=== PATIENT | female | born 1980 | race Caucasian/White ===

== ENCOUNTER 2017-03-14 16:37 | Emergency (ER) | payer BC ==
--- NOTE | 2017-03-14 17:02 | PDOC ---
Rapid Medical Evaluation Time Seen by Provider: 03/14/17 17:00 Medical Evaluation: Allergies Allergy/AdvReac Type Severity Reaction Status Date / Time No Known Allergies Allergy Verified 10/23/15 21:15 03/14/17 17:00 I have performed a brief in-person evaluation of this patient. The patient presents with a chief complaint of: 5 weeks with spotting and cramping Pertinent physical exam findings: ABD: SNTND I have ordered the following: CBC, BMP, T&S, coags, BHCG, ua, urine cx, TVUS The patient will proceed to the ED for further evaluation. Discharge Disposition - Diagnosis Vaginal bleeding affecting early - Referrals - Patient Instructions - Post Discharge Activity
== END 2017-03-14 17:13 | disposition left against medical advice (07) ==
LOC: JER 16:37
DX: O26.891 Other specified pregnancy related conditions, first trimester (principal); O20.8 Other hemorrhage in early pregnancy; Z3A.01 Less than 8 weeks gestation of pregnancy
CPT/HCPCS: 99281-25

== ENCOUNTER 2019-12-09 02:50 | Inpatient (IN) | payer OTHER ==
--- NOTE | 2019-12-09 03:25 | HP ---
Past Medical History - Admission Chief Complaint: 39 weeks, labor History Source: Patient Limitations to Obtaining History: No Limitations - Past Medical History ...: 3 ...Para: 2 ...Term: 2 ...: 0 ...Living Children: 2 ... Weeks Gestation by Dates: 39 Heme/Onc: Yes: Other (RH Negative). No: Anemia, B12 Deficiency, Bleeding Disorder, Cancer, Current Chemotherapy, Current Radiation Therapy, Hemochromatosis, Hypercoaguable State, Myeloproliferative Synd, Sickle Cell Disease, Sickle Cell Trait, Thrombocytopenia - Past Surgical History Past Surgical History: Yes: None Hx Myomectomy: No Hx Transabdominal Cerclage: No - Smoking History Smoking history: Never smoked Have you smoked in the past 12 months: No - Alcohol/Substance Use Hx Alcohol Use: No History of Substance Use: reports: None - Social History Usual Living Arrangement: Yes: With Spouse ADL: Independent History of Recent Travel: No Home Medications - Allergies Allergies/Adverse Reactions: Allergies Allergy/AdvReac Type Severity Reaction Status Date / Time No Known Allergies Allergy Verified 11/05/17 06:47 - Home Medications Home Medications: Ambulatory Orders Vit/Iron Fum/Folic AC [ Tablet] 1 each PO DAILY 10/24/15 Docusate Sodium [Colace] 100 mg PO BID #30 capsule 11/06/17 Ibuprofen [Motrin -] 600 mg PO QID #28 tablet 11/06/17 Review of Systems - Review of Systems Constitutional: reports: No Symptoms Eyes: reports: No Symptoms HENT: reports: No Symptoms Neck: reports: No Symptoms Cardiovascular: reports: No Symptoms Respiratory: reports: No Symptoms Gastrointestinal: reports: No Symptoms Genitourinary: reports: No Symptoms Breasts: reports: No Symptoms Reported Musculoskeletal: reports: No Symptoms Integumentary: reports: No Symptoms Neurological: reports: No Symptoms Endocrine: reports: No Symptoms Hematology/Lymphatic: reports: No Symptoms Psychiatric: reports: No Symptoms Physical Exam - Maternity Constitutional: Yes: Well Nourished, No Distress, Calm Eyes: Yes: WNL, Conjunctiva Clear, EOM Intact HENT: Yes: WNL, Atraumatic, Normocephalic Neck: Yes: WNL, Supple, Trachea Midline Cardiovascular: Yes: WNL, Regular Rate and Rhythm Breast(s): Yes: WNL - Abdominal Exam/OB Fundal Height: 38 Number of Fetuses: Single Presentation: Vertex Contractions: Yes Regularity: Regular Monitor Mode: External Heart Rate Location: [facility] Category: I Accelerations: Non-Uniform Decelerations: None - Vaginal Exam/OB Vaginal Bleeding: Bloody Show Speculum Exam: No Dilatation (cm): 6 cm Effacement (%): 80 Amniotic Membrane Status: Intact Presentation: Vertex/Position Station: 0 - Physical Exam Musculoskeletal: Yes: WNL Edema: LLE: Trace, RLE: Trace ...Motor Strength: WNL Psychiatric: Yes: WNL Hemorrhage Risk Assessment - Risk Factors Medium Risk Factors: Yes: Multiple gestation Risk Score: 1 Risk Level: Medium Risk Problem List - Problems (1) with 39 completed weeks gestation Code(s): Z3A.39 - 39 WEEKS GESTATION OF (2) First stage of labor established Code(s): MQE3362 - Assessment/Plan admit, hx of rectovaginal fistulla, repaired . vaginal delivery vs c/s has discussed with patient , wants to try vaginal delivery, advised epidural anesthesia
[2019-12-09] MEDS ORDERED: ELECTROLYTE-148 SOLN 1,000 ML IV SCH (03:30)
[2019-12-09 03:58] VITALS: BMI 22.4
[2019-12-09 03:58] LABS: BASO % 0.7 % (0-2.0); EOS % 1.1 % (0-4.5); HEMATOCRIT 32.5 % (32.4-45.2); HEMOGLOBIN 10.6 GM/dL (10.7-15.3); LYMPH % 16.9 % (8-40); MCH 26.9 pg (25.7-33.7); MCHC 32.5 g/dl (32.0-36.0); MEAN CELL VOLUME 82.9 fl (80-96); MEAN PLT VOLUME 10.3 fl (7.5-11.1); MONO % 6.5 % (3.8-10.2); NEUT % 74.8 % (42.8-82.8); PLATELET COUNT 169 K/MM3 (134-434); RBC 3.92 M/mm3 (3.60-5.2); RDW 14.2 % (11.6-15.6)
[2019-12-09 04:14] LABS: BLOOD UREA NITROGEN 8.4 mg/dL (7-18); CALCIUM 8.6 mg/dL (8.5-10.1); CREATININE 0.4 mg/dL (0.55-1.3); POTASSIUM 3.9 mmol/L (3.5-5.1)
[2019-12-09 04:17] LABS: INR 0.9 (0.83-1.09); PROTHROMBIN TIME (PATIENT) 10.6 SEC (9.7-13.0)
[2019-12-09] MEDS ORDERED: FENTANYL/BUPIVACAINE/NS/PF - PCEA - 50 ML DISP.SYRIN EP ONE (04:18)
[2019-12-09] MEDS ORDERED: PCA PUMP NR ONE ×2 (04:18→09:04)
[2019-12-09 04:20] LABS: ACTIVATED PTT 23.8 SECONDS (25.2-36.5)
[2019-12-09] MEDS ORDERED: OXYTOCIN 20 UNITS in 0.9% NS 20 UNIT/1,000 ML INFUS.BAG IV ONE (04:31)
[2019-12-09] MEDS ORDERED: BUPIVACAINE HCL/PF 0.25% (2.5MG/ML) 10 ML VIAL ONE (04:33)
[2019-12-09] MEDS ORDERED: NALOXONE HCL 0.4 MG/ML VIAL IVPUSH PRN (05:01)
[2019-12-09] MEDS ORDERED: FENTANYL/BUPIVACAINE/NS/PF - PCEA - 50 ML DISP.SYRIN EP SCH (05:15)
--- NOTE | 2019-12-09 07:30 | PN ---
Progress Note (short form) - Note Progress Note: cx 9 cm, 100 vx , o arom, clear , fhr cat , irregular contraction Problem List - Problems (1) with 39 completed weeks gestation Code(s): Z3A.39 - 39 WEEKS GESTATION OF (2) First stage of labor established Code(s): RMS2120 -
[2019-12-09] MEDS ORDERED: METHYLERGONOVINE MALEATE 0.2 MG/1 ML AMP IM PRN (08:55)
[2019-12-09] MEDS ORDERED: BISACODYL 10 MG SUPP.RECT RC PRN (08:55)
[2019-12-09] MEDS ORDERED: BENZOCAINE 28 GM HEMORRHOIDAL OINTMENT TP PRN (08:55)
[2019-12-09] MEDS ORDERED: BENZOCAINE 20% 57 GM BOTTLE TP PRN (08:55)
[2019-12-09] MEDS ORDERED: WITCH HAZEL 50% (TUCKS) 40 PAD/JAR PAD TP PRN (08:55)
--- NOTE | 2019-12-09 08:56 | PN ---
Delivery - Delivery Vaginal Delivery: Spontaneous (cx full , head on perinium , RML episiotomy done , head delivered , no cord, ant. and post.shoulder delivered with no difficulty , live baby girl 9/9 , placenta complete , RML episiotomy repaired in 3 layers with 2 chromic , rectal exam vo defect good tone) Type of Anesthesia: Local, Epidural Episiotomy/Laceration: Right Mediolateral EBL (cc): 300 Delivery, Single - 5 Minutes Total Score: 9 - [place] Feeding Plan Initial Plan: Exclusive throughout hospitalization
[2019-12-09] MEDS: OXYTOCIN 20 UNITS in 0.9% NS 20 UNIT/1,000 ML INFUS.BAG IV SCH ×2 (09:46→19:00)
[2019-12-09 09:59] LABS: CORD BASE EXCESS -6.6 mmol/L (0-2); CORD HCO3 20.1 mmHg (20-29); CORD pH 7.277 (7.14-7.44)
[2019-12-09] MEDS: PRENATAL VITAMINS W/ FOLIC ACID TABLET (FP) PO SCH (11:47)
[2019-12-09] MEDS: FERROUS SO4 325 MG TABLET (FP) PO SCH ×2 (11:47→21:07)
[2019-12-09] MEDS: IBUPROFEN 600 MG TABLET (FP) PO PRN ×2 (13:23→21:07)
[2019-12-09] MEDS: ACETAMINOPHEN 325 MG TABLET (FP) PO PRN ×2 (13:23→21:06)
[2019-12-10 06:02] VITALS: TEMP 98.3
--- NOTE | 2019-12-10 07:50 | DS ---
Physical Exam-RANCH MANAGER Vital Signs: Vital Signs Temperature 98.3 F 12/10/19 06:00 Pulse Rate 76 12/10/19 06:00 Respiratory Rate 18 12/10/19 06:00 Blood Pressure 100/61 12/10/19 06:00 O2 Sat by Pulse Oximetry (%) 98 12/10/19 06:00 Constitutional: Yes: Well Nourished, No Distress, Calm Eyes: Yes: WNL, Conjunctiva Clear, EOM Intact HENT: Yes: WNL, Atraumatic, Normocephalic Neck: Yes: WNL, Supple, Trachea Midline Cardiovascular: Yes: WNL, Regular Rate and Rhythm Respiratory: Yes: WNL, Regular, CTA Bilaterally Gastrointestinal: Yes: WNL ...Rectal Exam: Yes: WNL Renal/: Yes: WNL ....Post : Yes: Uterus firm, Uterus non-tender, Slight lochia rubra Breast(s): Yes: WNL Musculoskeletal: Yes: WNL Extremities: Yes: WNL Edema: No Integumentary: Yes: WNL Neurological: Yes: WNL, Alert, Oriented ...Motor Strength: WNL Psychiatric: Yes: WNL, Alert, Oriented Labs: CBC, BMP 12/09/19 03:45 12/09/19 03:45 Delivery - Delivery Vaginal Delivery: Spontaneous (cx full , head on perinium , RML episiotomy done , head delivered , no cord, ant. and post.shoulder delivered with no difficulty , live baby girl 9/9 , placenta complete , RML episiotomy repaired in 3 layers with 2 chromic , rectal exam vo defect good tone) Type of Anesthesia: Local, Epidural Episiotomy/Laceration: Right Mediolateral EBL (cc): 300 Delivery, Single - Stages of Labor Date 1st Stage Initiatied: 12/09/19 Time 1st Stage Initiated: 03:00 Date 2nd Stage Initiated: 12/09/19 Time 2nd Stage Initiated: 08:00 Date of Delivery: 12/09/19 Time of Delivery: 08:31 Time Placenta Delivered: 08:35 Placenta: Yes: Spontaneous - Condition of Electrician Elevator Maintenance/Management Manager Present: No Gender: Female Weight: 7 lb 4 oz Position: Left, OA Total Hours ROM (Hrs/Mins): 1hr 16min - 5 Minutes Total Score: 9 - Feeding Plan Initial Plan: Exclusive throughout hospitalization Discharge Summary Problems reviewed: Yes Reason For Visit: LABOR Current Active Problems First stage of labor established (Acute) with 39 completed weeks gestation (Acute) Procedures: Principal: Other Procedures: RML episiotomy Hospital Course: no complication Plan of Treatment: follow up offoicr 4 weeks Condition: Good - Instructions Diet, Activity, Other Instructions: regular diet, no intercourse , if fever, heavy vaginal bleeding ,pain call , follow up office 4 weeks Referrals: Ron Dean MD [Staff Physician] - Disposition: HOME - Home Medications Comprehensive Discharge Medication List: Ambulatory Orders Vit/Iron Fum/Folic AC [ Tablet] 1 each PO DAILY 10/24/15 Docusate Sodium [Colace] 100 mg PO BID #30 capsule 11/06/17 Ibuprofen [Motrin -] 600 mg PO QID #28 tablet 11/06/17 Ibuprofen [Motrin -] 600 mg PO QID #28 tablet 12/09/19
[2019-12-10] MEDS: ACETAMINOPHEN 325 MG TABLET (FP) PO PRN (08:29)
[2019-12-10] MEDS: IBUPROFEN 600 MG TABLET (FP) PO PRN (08:30)
[2019-12-10 09:03] LABS: BASO % 0.5 % (0-2.0); EOS % 1.5 % (0-4.5); HEMATOCRIT 26.8 % (32.4-45.2); HEMOGLOBIN 8.6 GM/dL (10.7-15.3); LYMPH % 21.1 % (8-40); MCH 26.8 pg (25.7-33.7); MCHC 32.2 g/dl (32.0-36.0); MEAN CELL VOLUME 83.3 fl (80-96); MEAN PLT VOLUME 10.5 fl (7.5-11.1); MONO % 6.4 % (3.8-10.2); NEUT % 70.5 % (42.8-82.8); PLATELET COUNT 134 K/MM3 (134-434); RBC 3.22 M/mm3 (3.60-5.2); RDW 14.3 % (11.6-15.6); WHITE BLOOD COUNT 8.8 K/mm3 (4.0-10.0)
[2019-12-10] MEDS: FERROUS SO4 325 MG TABLET (FP) PO SCH (10:59)
[2019-12-10] MEDS: PRENATAL VITAMINS W/ FOLIC ACID TABLET (FP) PO SCH (10:59)
[2019-12-10 15:32] VITALS: BP 119/78; PULSE 83
[2019-12-10] MEDS ORDERED: SENNOSIDES/DOCUSATE COMBO (SENNA PLUS) TABLET (UD) PO PRN (22:00)
== END 2019-12-10 16:30 | disposition home or self-care (01) | DRG 807 ==
LOC: JDEL 02:50 → JLDR 03:15 → J3N 11:10 → UNDODISIN 12-10 13:00
PROVIDERS: ADMIT Obstetrics & Gynecology; ATTEND Obstetrics & Gynecology
PROC: 10E0XZZ Delivery of Products of Conception, External Approach (ICD-10-PCS; principal; 2019-12-09)
PROC: 10907ZC Drainage of Amniotic Fluid, Therapeutic from Products of Conception, Via Natural or Artificial Opening (ICD-10-PCS; 2019-12-09)
PROC: 0W8NXZZ Division of Female Perineum, External Approach (ICD-10-PCS; 2019-12-09)
DX: O80 Encounter for full-term uncomplicated delivery (principal); Z37.0 Single live birth; Z3A.39 39 weeks gestation of pregnancy
CPT/HCPCS: 36415; 36600; 59409; 80048; 82803; 85025; 85461; 85610; 85730; 86780; 86850; 86900; 86901; 87389; U0003

== ENCOUNTER 2020-02-22 11:04 | Emergency (ER) | payer OTHER ==
[2020-02-22 11:14] VITALS: BP 129/94; PULSE 89; TEMP 98.9; BMI 20.9
[2020-02-22] MEDS ORDERED: SODIUM CHLORIDE 0.9% 1000 ML INFUS.BAG IV ONE (12:08)
[2020-02-22] MEDS ORDERED: METOCLOPRAMIDE HCL INJECTION 10 MG/2 ML VIAL IVPB ONE (12:08)
[2020-02-22] MEDS ORDERED: METOCLOPRAMIDE HCL INJECTION 10 MG/2 ML VIAL ONE (12:22)
[2020-02-22 13:09] LABS: BASO % 1.2 % (0-2.0); EOS % 1.6 % (0-4.5); HEMATOCRIT 40.4 % (32.4-45.2); HEMOGLOBIN 13.1 GM/dl (10.7-15.3); LYMPH % 36.2 % (8-40); MCHC 32.5 g/dl (32.0-36.0); MEAN PLT VOLUME 9.4 fl (7.5-11.1); MONO % 5.5 % (3.8-10.2); NEUT % 55.5 % (42.8-82.8); PLATELET COUNT 309 K/MM3 (134-434); RDW 17.1 % (11.6-15.6); WHITE BLOOD COUNT 5.9 K/mm3 (4.0-10.8)
[2020-02-22 13:13] LABS: ALBUMIN 4.7 g/dl (3.4-5.0); BILIRUBIN,TOTAL 0.7 mg/dl (0.2-1); CALCIUM 9.3 mg/dl (8.5-10); CREATININE 0.7 mg/dl (0.55-1.3); POTASSIUM 3.9 mmol/L (3.5-5.1); TOT PROT 7.6 g/dl (6.4-8.2)
[2020-02-22] MEDS ORDERED: DEXAMETHASONE SOD PHOSPHATE 4 MG/1 ML VIAL IVPUSH ONE (14:33)
[2020-02-22] MEDS ORDERED: DEXAMETHASONE SOD PHOSPHATE 4 MG/1 ML VIAL ONE (14:40)
== END 2020-02-22 14:51 | disposition home or self-care (01) ==
LOC: FER 11:04
PROC: 3E033NZ Introduction of Analgesics, Hypnotics, Sedatives into Peripheral Vein, Percutaneous Approach (ICD-10-PCS; principal; 2020-02-22)
PROC: 3E033GC Introduction of Other Therapeutic Substance into Peripheral Vein, Percutaneous Approach (ICD-10-PCS; 2020-02-22)
DX: R42 Dizziness and giddiness (principal)
CPT/HCPCS: 36415; 70450-TC; 80053; 85025; 99285-25

== ENCOUNTER 2023-09-02 03:46 | Day surgery (SDC) | payer OTHER ==
[2023-08-21 08:15] VITALS: BMI 19.8
[2023-09-02] MEDS ORDERED: FENTANYL CITRATE/PF 50 MCG/ML VIAL ONE (09:17)
[2023-09-02] MEDS ORDERED: MIDAZOLAM HCL 2 MG/2 ML SINGLE DOSE VIAL ONE (09:18)
[2023-09-02] MEDS ORDERED: PROPOFOL 20 ML ONE ×2 (09:18→09:37)
[2023-09-02] MEDS: IODINE/POTASSIUM IODIDE 5%/10% 14 ML BOTTLE NR ONE (09:40)
[2023-09-02] MEDS: FERRIC SUBSULFATE 500 ML BOTTLE TP ONE (09:50)
[2023-09-02] MEDS ORDERED: metroNIDAZOLE 0.75% VAGINAL GEL 70 GM TUBE ONE (09:51)
[2023-09-02] MEDS: metroNIDAZOLE 0.75% VAGINAL GEL 70 GM TUBE VG ONE (09:53)
[2023-09-02] MEDS ORDERED: ONDANSETRON 4 MG/2 ML VIAL ONE (10:00)
[2023-09-02] MEDS ORDERED: IBUPROFEN 800 MG/8 ML IJ IVPB PRN (10:10)
[2023-09-02] MEDS ORDERED: IBUPROFEN 600 MG TABLET (FP) PO PRN (10:10)
[2023-09-02] MEDS ORDERED: oxyCODONE HCL 5 MG TABLET PO PRN (10:10)
[2023-09-02] MEDS ORDERED: ONDANSETRON 4 MG/2 ML VIAL IVPUSH PRN (10:10)
[2023-09-02] MEDS ORDERED: ELECTROLYTE-148 SOLN 1,000 ML IV SCH (10:15)
[2023-09-02 10:20] VITALS: RESP 20
[2023-09-02 12:34] VITALS: BP 116/75; PULSE 71; TEMP 96.9
== END 2023-09-02 12:20 | disposition home or self-care (01) ==
LOC: JASU-SURG 03:46
PROVIDERS: ATTEND Obstetrics & Gynecology
PROC: 0UBC7ZX Excision of Cervix, Via Natural or Artificial Opening, Diagnostic (ICD-10-PCS; principal; 2023-09-02 09:30)
DX: R87.612 Low grade squamous intraepithelial lesion on cytologic smear of cervix (LGSIL) (principal)
CPT/HCPCS: 81025; 88305-TC; 88307-TC; 88341-TC; 88342-TC